=== PATIENT | male | born 2000 | race Two or more races ===

== ENCOUNTER 2024-08-10 08:25 | Emergency (ER) | payer MEDICAID, SELFPAY ==
[2024-08-10 08:35] VITALS: BP 117/77; PULSE 73; RESP 19; TEMP 37; O2SAT 98; BMI 27.6
--- NOTE | 2024-08-10 09:06 | PD.EDABDPN ---
ED Abdominal Pain RME/HPI General Chief Complaint: Abdominal Pain Stated complaint: ABD PAIN X 1 HR Time seen by provider: 08/10/24 08:30 Arrival date/time: 08/10/24 08:25 Limitations: no limitations RME / HPI RME / HPI narrative: 23-year-old male complaining of stomach pain for about an hour. Denies drinking or using drugs. States has had this pain on and off for a few months but never looked into it. States that this does not feel like heartburn. No history of pancreatitis. No history of stomach issues. No constipation or diarrhea. No fever. Related Data Home Medications ?Medication ?Instructions ?Recorded ?Confirmed hydrocodone 5 mg-acetaminophen 325 1 tab PO Q6H PRN Pain 12/22/19 12/22/19 mg tablet (Cardale) Previous Rx's ?Medication ?Instructions ?Recorded IBU 800 mg tablet (ibuprofen) 800 mg PO Q6H PRN pain #30 tabs 08/10/24 hydrocodone 5 mg-acetaminophen 325 1 tab PO BID PRN pain 7 days #14 08/10/24 mg tablet tabs ondansetron 4 mg disintegrating 4 mg PO Q8H PRN nausea and 08/10/24 tablet vomiting #10 tabs Allergies Allergy/AdvReac Type Severity Reaction Status Date / Time No Known Allergies Allergy Verified 08/10/24 08:28 Review of Systems Review of Systems Systems Reviewed: All systems reviewed, normal except as documented Constitutional Constitutional: Denies fever(s) Gastrointestinal Gastrointestinal: Reports as per HPI Genitourinary Genitourinary: Denies difficulty urinating ED Exam General Limitations: Present no limitations General appearance: Present alert and in no apparent distress Eye Eye exam: Present normal appearance, PERRL and EOMI Respiratory Respiratory exam: Present normal lung sounds bilaterally Cardiovascular Cardiovascular exam: Present regular rate, normal rhythm and normal heart sounds Abdominal Exam Abdominal exam: Present soft, tenderness and normal bowel sounds; Absent Sheikh's sign Extremities Exam Extremities exam: Present normal inspection and full ROM Back Exam Back exam: Present normal inspection and full ROM Psychiatric Psychiatric exam: Present normal affect and normal mood Skin Skin exam: Present warm, dry, intact and normal color Course Quality Measures none Orders Category Date Time Status US gall bladder Stat Exams 08/10/24 09:08 Completed CBC Stat Lab 08/10/24 10:24 Completed CMP [Comprehensive Metabolic Panel] Stat Lab 08/10/24 10:24 Completed Lipase Stat Lab 08/10/24 10:24 Completed UA [Urinalysis] Stat Lab 08/10/24 09:28 Completed Famotidine [Pepcid] Med 08/10/24 09:12 Discontinued 40 mg PO X1 ONE Vital Signs Vital signs: Vital Signs Temperature 98.6 F 08/10/24 08:35 Pulse Rate 73 08/10/24 08:35 Respiratory Rate 19 08/10/24 08:35 Blood Pressure 117/77 08/10/24 08:35 Pulse Oximetry (%) 98 08/10/24 08:35 Oxygen Delivery Method Room Air 08/10/24 08:35 Abdominal Pain MDM MDM Narrative MDM Narrative:: Differential was complex and broad however after workup likely diagnosis is cholelithiasis without pancreatitis or cholecystitis. Explained course to follow-up with PCP for referral to general surgeon return to ER symptoms worsen Patient data External records reviewed:: None Clinical information provided by:: patient and family Social determinants that could affect healthcare access:: other (specify) (PCP not available in the weekends) Patient has the following chronic illnesses:: None How is presenting disease/condition affected by chronic disease/condition?: no chronic disease Evaluation data The following diagnostics were reviewed and interpreted by me:: lab results and radiology exam(s) Lab and/or radiology exams considered but not ordered:: CT scan was considered however unlikely needed given history Interpretation Summary: CBC CMP and basic labs within normal limits. Ultrasound did show gallstones Medications / Prescriptions Medications or Prescriptions considered but not ordered:: All medications consider ordered Medication administrations:: Medication Administration History Discontinued Medications Famotidine (Famotidine 20 Mg Tablet) 40 mg PO X1 ONE Stop: 08/10/24 09:13 Last Admin: 08/10/24 10:55 Dose: 40 mg Documented By: GM Declined narcotics are here Consultations Consultation(s) initiated? (list below): No Diagnosis Differential diagnosis abdominal pain: abdominal pain, acute appendicitis, calculus of kidney, constipation, gastroenteritis and pancreatitis Most likely diagnosis given after review of the tests above:: Biliary colic without cholecystitis Admission Indicated Admission indicated?: not indicated Admission Request Was there a request for admission?: No Disposition Plan Disposition Plan: Discharge Discharge Attestation Discharge Attestation: The patient and all family members were given an opportunity to ask questions and understood the discharge instructions. Discharge instructions specifically effects, indications for sooner follow up or return to the emergency department, and the expected course of current diagnosis. Patient condition: Stable Discharge Plan Plan Patient Disposition: HOME (Self Care) Disposition Comment: f/u with pcp in 2-3days Prescriptions/Referrals Prescriptions/Med Rec: New ibuprofen [IBU] 800 mg tablet 800 mg PO Q6H PRN (Reason: pain) Qty: 30 0RF ondansetron 4 mg tablet,disintegrating 4 mg PO Q8H PRN (Reason: nausea and vomiting) Qty: 10 0RF hydrocodone-acetaminophen 5-325 mg tablet 1 tab PO BID MDD 2 a day PRN (Reason: pain) 7 Days Qty: 14 0RF No Action hydrocodone-acetaminophen [Cardale] 5-325 mg Tablet 1 tab PO Q6H PRN (Reason: Pain) Referrals: Ruperto Coreas MD [Primary Care Provider] - In 1 week Problem List Clinical Impression: Cholelithiasis, Abdominal pain with vomiting Patient/Caregiver Discharge Instructions Education Materials: Abdominal Pain, ED Gallstones with Biliary Colic Print Language: [place]ayan Stand Alone Forms: Anne Award Info., Work/School Release, Patient Portal Info Letter PA/[employer]IVER Supervising Physician PA/[employer]LE[employer] DRIVER Supervising Physician: Dr. Burnett
--- NOTE | 2024-08-10 09:08 | XR_ITS ---
Examination: Abdomen sonogram, Limited Date and time of exam: Ankle, 2024, 0948 hrs. Indications: Onset right upper abdominal pain beginning 2 hours ago Technique: Real-time silva scale transabdominal sonographic images of the upper abdomen obtained. Findings: 4 mm gallstone Gallbladder sludge Gallbladder wall normal 0.2 cm Common bile duct 0.4 cm Pancreatic head 1.9 cm 14. 0.3 cm no liver lesions Normal hepatopedal portal venous flow Patent IVC Impression: Cholelithiasis, negative for cholecystitis
[2024-08-10 09:41] LABS: Collection Type, Urine Clean Catch
[2024-08-10 09:51] LABS: Bacteria,Urine Rare; Bilirubin,Urine Negative (Negative); Blood,Urine Negative (Negative); Clarity,Urine Clear (Clear/Hazy); Color,Urine Yellow (Lt Yel-Yel); Glucose, Urine Negative (Negative); Ketones,Urine Negative (Negative); Leukocyte Esterase,Urine Positive (Negative); Nitrite,Urine Negative (Negative); Protein,Urine Trace (Neg - Trace); RBC,Urine 6 /hpf (0-3); Specific Gravity,Urine 1.036 (1.001-1.035); Squamous Epithelial Cell,Urine 1 /hpf (0-5); Urobilinogen,Urine Negative mg/dL (0.0-1.0); WBC,Urine 33 /hpf (0-5)
[2024-08-10 10:29] LABS: Basophils % (Auto) 1 % (0-2.5); Eosinophils # (Auto) 0.2 Thou/mm3 (0.0-0.5); Eosinophils % (Auto) 3 % (0-10); Hematocrit 47.7 % (41.0-53.0); Hemoglobin 15.8 g/dL (13.5-16.0); Immature Granulocytes % (Auto) 0 % (0-0); Immature Granulocytes Auto 0.02 Thou/mm3 (0.00-0.00); Lymphocytes # (Auto) 1.9 Thou/mm3 (1.0-4.8); Lymphocytes % (Auto) 23 % (10-50); Mean Corpuscular HGB Conc 33.1 g/dl (31.0-37.0); Mean Corpuscular Hemoglobin 27.2 pg (25.0-35.0); Mean Corpuscular Volume 82 fL (80-100); Monocytes # (Auto) 0.7 Thou/mm3 (0.0-0.8); Monocytes % (Auto) 8 % (0-12); Neutrophils # (Auto) 5.4 Thou/mm3 (1.8-7.7); Neutrophils % (Auto) 65 % (37-80); Nucleated Red Blood Cell % 0 /100 WBC (0); Platelet Count 211 Thou/mm3 (140-440); RDW Standard Deviation 38.6 fL (35.1-43.9); Red Blood Count 5.81 Miln/mm3 (4.50-5.90); White Blood Count 8.2 Thou/mm3 (3.8-10.6)
[2024-08-10 10:47] LABS: Alanine Aminotransferase 27 U/L (10-49); Albumin, Serum 4.5 gm/dL (3.5-5.0); Albumin/Globulin Ratio 1.7 (1.2-2.2); Alkaline Phosphatase 91 U/L (46-116); Anion Gap 8 (7-16); Aspartate Amino Transferase 27 U/L (0-34); BUN/Creatinine Ratio 15 Ratio (12-20); Bilirubin,Total 0.8 mg/dL (0.3-1.2); Blood Urea Nitrogen 17 mg/dL (9-23); Calcium 9.4 mg/dL (8.3-10.6); Calcium (Corrected) 9.4 mg/dL (8.5-10.1); Carbon Dioxide 29.1 mMol/L (20.0-31.0); Chloride 104 mMol/L (98-107); Creatinine (Component) 1.1 mg/dL (0.6-1.3); Estimated Creatinine Clearance 106.7 mL/min (>60); Globulin 2.6 gm/dL (2.3-3.5); Glucose 77 mg/dL (74-106); Lipase 43 U/L (12-53); Osmolality,Calculated 281 (275-295); Sodium 141 mMol/L (136-145); Total Protein 7.1 gm/dL (5.7-8.2); eGFR > 60 See Note
[2024-08-10] MEDS: FAMOTIDINE 20 MG TABLET 40 MG PO (10:55)
== END 2024-08-10 11:57 | disposition home or self-care (01) ==
PROVIDERS: Physician Assistant; Emergency Provider Emergency Medicine; PCP Family Medicine
DX: K80.20 Calculus of gallbladder without cholecystitis without obstruction (principal)
CPT/HCPCS: 36415; 76705; 80053; 81001; 83690; 85025; 99284; A9270